=== PATIENT | male | born 2000 | race Caucasian/White ===

== ENCOUNTER 2020-10-03 00:46 | Emergency (ER) | payer OTHER ==
[~2020-10-03] VITALS: Ht 177.8 cm; Wt 66.4 kg
--- NOTE | 2020-10-03 01:25 | PHYS DOC ---
Past History Past Medical History: Asthma Past Surgical History: No Surgical History Alcohol Use: None Adult General Chief Complaint Chief Complaint: ABDOMINAL PAIN HPI HPI Patient is an otherwise healthy 19-year-old male who presents to the emergency department with 4 days of abdominal pain, around his umbilicus, 6 out of 10, dull and achy in nature, intermittent with nausea and vomiting when he eats and mild nausea otherwise as well as watery diarrhea. Denies any recent traumas, other illnesses, fevers, chest pain, shortness of breath, dysuria, hematuria, blood in the stool. States that he was recently at his chiropractor's office, just before the symptoms started and his chiropractor was sick. Denies any alcohol or drug use. Denies any symptom management medications. Review of Systems Review of Systems Review of systems otherwise unremarkable except noted in HPI Current Medications Current Medications Current Medications Medications (Trade) Dose Ordered Sig/Amada Start Time Stop Time Status Last Admin Dose Admin Ondansetron HCl (Zofran Odt) 8 mg 1X ONCE 10/03/20 01:30 10/03/20 01:31 10/03/20 01:16 8 MG Allergies Allergies Allergies Coded Allergies Type Severity Reaction Last Updated Verified No Known Drug Allergies 10/03/20 No Physical Exam Physical Exam Constitutional: Well developed, well nourished, no acute distress, non-toxic appearance. [] HENT: Normocephalic, atraumatic, bilateral external ears normal, oropharynx moist, no oral exudates, nose normal. [] Eyes: conjunctiva normal, no discharge. [] Neck: Normal range of motion, no tenderness, supple, no stridor. [] Cardiovascular:Heart rate regular rhythm, no murmur [] Lungs & Thorax: Bilateral breath sounds clear to auscultation [] Abdomen: Bowel sounds normal, soft, umbilical tenderness with no guarding or rebound,, no masses, no pulsatile masses. [] Skin: Warm, dry, no erythema, no rash. [] Back: no CVA tenderness. [] Extremities: No tenderness, no cyanosis, no clubbing, ROM intact, no edema. [] Neurologic: Alert and oriented X 3, normal motor function, normal sensory function, no focal deficits noted. [] Psychologic: Affect normal, judgement normal, mood normal. [] Current Patient Data Vital Signs Vital Signs Date Time Temp Pulse Resp B/P (MAP) Pulse Ox O2 Delivery O2 Flow Rate FiO2 10/03/20 01:05 98.5 96 18 121/80 (94) 99 Room Air EKG EKG [] Radiology/Procedures Radiology/Procedures []CT abdomen and pelvis with contrast: Reason for examination: Umbilical pain for 4 days. Helical images were obtained through the abdomen and pelvis with intravenous administration of 75 cc Omnipaque 300. Reconstruction was performed in sagittal and coronal planes. Exposure: One or more of the following individualized dose reduction techniques were utilized for this examination: 1. Automated exposure control 2. Adjustment of the mA and/or kV according to patient size 3. Use of iterative reconstruction technique. The lung bases are clear. The heart size is normal with no pericardial effusion evident. No abnormality seen at the liver, gallbladder, spleen, adrenal glands or pancreas. The abdominal aorta and inferior vena cava show no abnormalities. The kidneys show no renal masses, renal calculi, hydronephrosis or evidence of obstructive uropathy. No abnormality seen at the appendix. The colon shows no diverticulosis, diverticulitis or colitis. The small intestinal tract shows no abnormal dilatation, wall thickening or obstruction. No abnormality seen at the stomach or duodenum. No abnormality seen at the bladder, prostate gland or seminal vesicles. No free fluid or free air seen in the abdomen or pelvis. No acute bony abnormalities are seen. IMPRESSION: No abnormality seen at the appendix. No other acute abnormality seen in the abdomen or pelvis. Electronically signed by: Prema Santillan MD (10/03/2020 2:54 AM) [facility] Heart Score C/O Chest Pain: No Risk Factors: Risk Factors: DM, Current or recent (<one month) smoker, HTN, HLP, family history of CAD, obesity. Risk Scores: Risk Factors: DM, Current or recent (<one month) smoker, HTN, HLP, family history of CAD, obesity. Course & Med Decision Making Course & Med Decision Making Patient is a 19-year-old male who presents with 4 days of centralized abdominal discomfort associated with nausea, vomiting and diarrhea Vital signs not concerning. Physical exam noted above. Patient placed on monitor with IV access established. Denied need for nausea medicine at this time. Given pain medication. Laboratory analysis not concerning. CT the abdomen pelvis with no concerning findings. Patient symptoms resolved in the emergency department. Discussed all findings with patient advised on pain management at home. Advised to follow-up in the morning with primary care physician and set up a follow-up visit. Gave strict return precautions to the ED. Patient grateful, verbalized understanding and agreed with plan of discharge. [] Dragon Disclaimer Dragon Disclaimer This electronic medical record was generated, in whole or in part, using a voice recognition dictation system. Departure Departure: Impression: Primary Impression: Abdominal pain Disposition: HOME / SELF CARE / HOMELESS Condition: GOOD Referrals: PCP,UNKNOWN (PCP) RICHIE ORLANDO MD Patient Instructions: Abdominal Pain (Nonspecific) Additional Instructions: Thank you for coming into the emergency department tonight and allowing us to take care of you. Please read the attached information carefully. Please contact your primary care physician first thing in the morning to update on ED visit and set up a follow-up when you can. If you do not have a primary care physician you were given resources for local primary care physicians and free clinics. Please come back to the emergency department immediately with new or concerning symptoms as discussed. BRADLEY BALBUENA MD Oct 03, 2020 01:25
[2020-10-03] MEDS ORDERED: ONDANSETRON ODT 4 MG TAB.RAPDIS PO ONE (01:30)
[2020-10-03] MEDS ORDERED: CONTRAST GIVEN. MC PRN (01:30)
[2020-10-03] MEDS ORDERED: IOHEXOL 300 MG/ML 75 ML VIAL. IV ONE (02:00)
[2020-10-03] MEDS ORDERED: MORPHINE SULFATE 4 MG/ML DISP.SYRIN. IV ONE (02:00)
[2020-10-03 02:01] LABS: BASO % 0 % (0-3); EOS % 0 % (0-3); HEMATOCRIT 40.5 % (39.0-53.0); HEMOGLOBIN 14.2 g/dL (13.0-17.5); LYMPH % 13 % (24-48); MEAN CORPUSCULAR HEMOGLOBIN 33 pg (25-35); MEAN CORPUSCULAR HGB CONC 35 g/dL (31-37); MEAN CORPUSCULAR VOLUME 94 fL (79-100); MONO # 0.6 x10^3/uL (0.0-1.1); MONO % 8 % (0-9); NEUT # 5.9 x10^3uL (1.8-7.7); NEUT % 79 % (31-73); PLATELET COUNT 302 x10^3/uL (140-400); RED BLOOD COUNT 4.31 x10^6/uL (4.30-5.70); RED CELL DISTRIBUTION WIDTH 12.9 % (11.5-14.5); WHITE BLOOD COUNT 7.5 x10^3/uL (4.0-11.0)
[2020-10-03 02:09] LABS: BACTERIA,URINE 0 /HPF (0-FEW); BILIRUBIN,URINE SMALL (NEG); CALCIUM 9.6 mg/dL (8.5-10.1); CLARITY,URINE CLEAR; COLOR,URINE YELLOW; CREATININE 1.2 mg/dL (0.7-1.3); GLUCOSE,URINE NEG (NEG); NITRITE,URINE NEG (NEG); POTASSIUM 3.6 mmol/L (3.5-5.1); RBC,URINE 0 /HPF (0-2); SQUAMOUS EPITHELIAL CELL,UR OCC /LPF; UROBILINOGEN,URINE 0.2 mg/dL (0.2 mg/dL); WBC,URINE OCC /HPF (0-4)
[2020-10-03 02:14] LABS: ALBUMIN 4.5 g/dL (3.4-5.0); ALBUMIN/GLOBULIN RATIO 1.6 (1.0-1.7); TOTAL PROTEIN 7.4 g/dL (6.4-8.2)
--- NOTE | 2020-10-03 02:57 | RAD ---
CT abdomen and pelvis with contrast: Reason for examination: Umbilical pain for 4 days. Helical images were obtained through the abdomen and pelvis with intravenous administration of 75 cc Omnipaque 300. Reconstruction was performed in sagittal and coronal planes. Exposure: One or more of the following individualized dose reduction techniques were utilized for thi s examination: 1. Automated exposure control 2. Adjustment of the mA and/or kV according to patient size 3. Use of iterative reconstruction technique. The lung bases are clear. The heart size is normal with no pericardial effusion evident. No abnormality seen at the liver, gallbladder, spleen, adrenal glands or pancreas. The abdominal aort a and inferior vena cava show no abnormalities. The kidneys show no renal masses, renal calculi, hydr onephrosis or evidence of obstructive uropathy. No abnormality seen at the appendix. The colon shows no diverticulosis, diverticulitis or colitis. The small intestinal tract shows no abnormal dilatation , wall thickening or obstruction. No abnormality seen at the stomach or duodenum. No abnormality seen at the bladder, prostate gland or seminal vesicles. No free fluid or free air see n in the abdomen or pelvis. No acute bony abnormalities are seen. IMPRESSION: No abnormality seen at the appendix. No other acute abnormality seen in the abdomen or pelvis. Electronically signed by: Prema Santillan MD (10/03/2020 2:54 AM) [facility]
[2020-10-03 03:22] VITALS: BP 119/54
== END 2020-10-03 03:20 | disposition home or self-care (01) ==
LOC: ER 00:46
DX: R10.9 Unspecified abdominal pain (principal); R11.2 Nausea with vomiting, unspecified; J45.909 Unspecified asthma, uncomplicated
CPT/HCPCS: 36415; 74177; 80053; 81001; 83690; 85025; 96374; 99285; J2270; Q0162; Q9967